=== PATIENT | female | born 1985 | race African-American/Black ===

== ENCOUNTER 2017-02-15 23:19 | Emergency (ER) | payer OTHER ==
[~2017-02-15] VITALS: Ht 170.2 cm; Wt 72.6 kg
[~2017-02-15 23:19] MED LIST: BUTA1CAP29 PO; GUAI473S3 PO; ONDA4TAB10 SL; PRED20TA PO; PROAIR HFA8.5 GM INH
[2017-02-15 23:21] VITALS: BP 142/74
[2017-02-16] MEDS ORDERED: PRED50TA PO (00:24)
[2017-02-16] MEDS ORDERED: DEXT30SU15 PO (00:24)
[2017-02-16] MEDS ORDERED: BENZ100C PO (00:24)
[2017-02-16] MEDS ORDERED: AZIT250T PO (00:24)
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
== END 2017-02-16 00:26 | disposition home or self-care (01) ==
LOC: ER 23:19 → MERGE 23:19 → ER 02-16 00:26
DX: J40 Bronchitis, not specified as acute or chronic (principal); J02.8 Acute pharyngitis due to other specified organisms; H92.03 Otalgia, bilateral; B97.89 Other viral agents as the cause of diseases classified elsewhere; Z77.22 Contact with and (suspected) exposure to environmental tobacco smoke (acute) (chronic); Z88.1 Allergy status to other antibiotic agents; Z88.8 Allergy status to other drugs, medicaments and biological substances
CPT/HCPCS: 99283

== ENCOUNTER 2017-10-03 21:35 | Emergency (ER) | payer OTHER ==
[~2017-10-03] VITALS: Ht 167.6 cm; Wt 72.6 kg
[~2017-10-03 21:35] MED LIST changes: +AZIT250T PO; +BENZ100C PO; +DEXT30SU19 PO; +PRED50TA PO
[2017-10-03 21:42] VITALS: BP 154/71
[2017-10-03] MEDS ORDERED: FLUT9.9S NS (21:51)
[2017-10-03] MEDS ORDERED: SULF1TAB24 PO (21:51)
--- NOTE | 2017-10-03 21:52 | PHYS DOC ---
Past Medical History Past Medical History: Other Additional Past Medical Histor: "heart murmur" Past Surgical History: No Surgical History Additional Past Surgical Histo: ectopic Alcohol Use: Occasionally Drug Use: None Adult General Chief Complaint Chief Complaint: Congestion HPI HPI Patient is a 32 year old female presents to the emergency department with upper respiratory symptoms for 2 weeks. She is using [id number] cough and cold medications without relief of symptoms. No fever. No facial pain. Review of Systems Review of Systems Constitutional: Denies fever or chills [] Eyes: Denies change in visual acuity, redness, or eye pain [] HENT: Nasal congestion Respiratory: Cough Cardiovascular: No additional information not addressed in HPI [] GI: Denies abdominal pain, nausea, vomiting, bloody stools or diarrhea [] : Denies dysuria or hematuria [] Musculoskeletal: Denies back pain or joint pain [] Integument: Denies rash or skin lesions [] Neurologic: Denies headache, focal weakness or sensory changes [] Endocrine: Denies polyuria or polydipsia [] All other systems were reviewed and found to be within normal limits, except as documented in this note. Allergies Allergies Allergies Coded Allergies Type Severity Reaction Last Updated Verified naproxen Allergy Severe Anaphylaxis 09/27/15 Yes procaine Allergy Severe Anaphylaxis 09/27/15 Yes Penicillins Allergy Intermediate rash 09/27/15 Yes Physical Exam Physical Exam Constitutional: Well developed, well nourished, no acute distress, non-toxic appearance. [] HENT: Normocephalic, atraumatic, bilateral external ears normal, oropharynx moist, no oral exudates, anterior turbinates swollen, purulent nasal discharge. Maxillary sinus tenderness.[] Eyes: PERRLA, EOMI, conjunctiva normal, no discharge. [] Neck: Normal range of motion, no tenderness, supple, no stridor. [] Cardiovascular:Heart rate regular rhythm, no murmur [] Lungs & Thorax: Bilateral breath sounds clear to auscultation [] Abdomen: Bowel sounds normal, soft, no tenderness, no masses, no pulsatile masses. [] Skin: Warm, dry, no erythema, no rash. [] Back: No tenderness, no CVA tenderness. [] Extremities: No tenderness, no cyanosis, no clubbing, ROM intact, no edema. [] Neurologic: Alert and oriented X 3, normal motor function, normal sensory function, no focal deficits noted. [] Psychologic: Affect normal, judgement normal, mood normal. [] Current Patient Data Vital Signs Vital Signs Date Time Temp Pulse Resp B/P (MAP) Pulse Ox O2 Delivery O2 Flow Rate FiO2 10/03/17 21:42 97.8 92 18 100 Room Air 97.8 EKG EKG [] Radiology/Procedures Radiology/Procedures [] Course & Med Decision Making Course & Med Decision Making Pertinent Labs and Imaging studies reviewed. (See chart for details) [] Dragon Disclaimer Dragon Disclaimer This electronic medical record was generated, in whole or in part, using a voice recognition dictation system. Departure Departure Impression: Primary Impression: Sinusitis Disposition: HOME, SELF-CARE Condition: STABLE Referrals: WILMAN SKY MD (PCP) Patient Instructions: Sinusitis Additional Instructions: Ilex-zir-[id number] cough and cold medications as labeled and as indicated for symptom management Scripts Fluticasone Propionate (Flonase Allergy Relief) 9.9 Ml [place].susp 2 SPRAYS NS DAILY, #1 BOTTLE Prov: FIFI BILLINGS APRN 10/03/17 Sulfamethoxazole/Trimethoprim (BACTRIM DS TABLET) 1 Each Tablet 1 TAB PO BID, #20 TAB Prov: FIFI BILLINGS APRN 10/03/17 Problem Qualifiers Primary Impression: Sinusitis Sinusitis location: maxillary Chronicity: acute Recurrence: non-recurrent Qualified Codes: J01.00 - Acute maxillary sinusitis, unspecified FIFI BILLINGS APRN Oct 03, 2017 21:52
== END 2017-10-03 22:13 | disposition home or self-care (01) ==
LOC: ER 21:35
DX: J01.00 Acute maxillary sinusitis, unspecified (principal); Z88.4 Allergy status to anesthetic agent; Z88.0 Allergy status to penicillin; Z88.6 Allergy status to analgesic agent
CPT/HCPCS: 99283

== ENCOUNTER 2017-12-20 18:49 | Emergency (ER) | payer OTHER ==
[2017-12-20] MEDS: BENZONATATE 100 MG CAPSULE. PO ×2 (20:00)
[2017-12-20] MEDS: DEXAMETHASONE 4 MG TABLET PO ×2 (20:06)
[2017-12-20] MEDS: IPRATRPIUM/ALBUTEROL 0.5/2.5MG 3 ML NEBU. NEB ×2 (20:11)
[2017-12-20 20:48] LABS: INFLUENZA A PATIENT NEGATIVE (NEGATIVE); INFLUENZA B PATIENT NEGATIVE (NEGATIVE); OBC FLU VALID
== END 2017-12-20 21:20 | disposition home or self-care (01) ==
LOC: ER 18:49
DX: J06.9 Acute upper respiratory infection, unspecified (principal); I10 Essential (primary) hypertension; Z88.0 Allergy status to penicillin; Z88.5 Allergy status to narcotic agent; Z88.8 Allergy status to other drugs, medicaments and biological substances
CPT/HCPCS: 71046; 87804; 87804-59; 94640; 99285-25; J7620; J8540

== ENCOUNTER 2018-02-06 16:55 | Emergency (ER) | payer OTHER | END 2018-02-06 18:16 | disposition home or self-care (01) | LOC: ER 18:16 | DX: S93.602A Unspecified sprain of left foot, initial encounter (principal); Z88.0 Allergy status to penicillin; Z88.5 Allergy status to narcotic agent; Z88.8 Allergy status to other drugs, medicaments and biological substances; W01.0XXA Fall on same level from slipping, tripping and stumbling without subsequent striking against object, initial encounter; Y93.89 Activity, other specified; Y99.8 Other external cause status; Y92.89 Other specified places as the place of occurrence of the external cause | CPT/HCPCS: 29515; 73630; 99284-25 ==

== ENCOUNTER 2018-05-23 13:32 | Emergency (ER) | payer OTHER ==
[2018-05-23] MEDS: ACETAMINOPHEN 500 MG TABLET PO (14:44)
== END 2018-05-23 14:49 | disposition home or self-care (01) ==
LOC: ER 13:32
DX: J06.9 Acute upper respiratory infection, unspecified (principal); H92.02 Otalgia, left ear; Z88.0 Allergy status to penicillin; Z88.5 Allergy status to narcotic agent; Z88.8 Allergy status to other drugs, medicaments and biological substances
CPT/HCPCS: 99283

== ENCOUNTER → 2019-10-08 | Outpatient (CLI) | payer OTHER ==
[2018-05-23 14:02] VITALS: BP 137/78
[~2019-10-08] MED LIST changes: +ACET500T68 PO; +ALBU2.5V8 INH; +FLUT9.9S NS; +METH4TAB2 PO; -PROAIR HFA8.5 GM INH; +PROM5SYR2 PO; +SULF1TAB24 PO
--- NOTE | 2019-10-08 14:49 | RAD ---
EXAM: Obstetrics sonogram HISTORY: Size and dates assessment. COMPARISON: None FINDINGS: Sonographic imaging of a gravid uterus was performed. There is a single intrauterine fetus in cephalic presentation with a normal heart rate of 137 bpm. There is normal body motion. There is a four-chamber heart. The stomach, kidneys, bladder, spine, brain, facial profile and extremities are unremarkable. There is a three-vessel umbilical cord with normal insertion. The cervix is closed and measures 4.4 cm in length. There is a posterior placenta without evidence of placenta previa. The amniotic fluid index is grossly normal. The biparietal diameter is 5.80 cm, corresponding with 23 weeks and 5 days. The head circumference is 20.90 cm, corresponding with 23 weeks and 0 days. The abdominal circumference is 17.99 cm, corresponding with 22 weeks and 6 days. The femoral length is 4.04 cm, corresponding with 23 weeks and 0 days. The estimated gestational age patient combined ultrasound measurements is 23 weeks and 1 day and the estimated due date is 02/03/2020. The estimated weight is 552 g, corresponding with the 41st percentile for a gestational age of 20 weeks and 6 days based on LMP. IMPRESSION: 1. Single intrauterine fetus with a normal heart rate and gestational age based on ultrasound measurements of 23 weeks and 1 day. 2. Unremarkable anatomy survey. Electronically signed by: Naila Goyal MD (10/08/2019 2:46 PM) [id number]
== END | disposition home or self-care (01) ==
LOC: US 12:29
PROVIDERS: ATTEND Obstetrics & Gynecology
DX: O26.842 Uterine size-date discrepancy, second trimester (principal); Z3A.23 23 weeks gestation of pregnancy
CPT/HCPCS: 76805

== ENCOUNTER 2019-10-15 16:04 | Observation (INO) | payer OTHER ==
[2018-05-23 14:02] VITALS: BP 137/78
[2019-10-15] MEDS ORDERED: IV RINGERS,LACTATED 1000ML 1,000 ML IV SCH (16:05)
[2019-10-15] MEDS ORDERED: TERBUTALINE 1 MG/ML VIAL. SQ PRN (16:15)
[2019-10-15] MEDS ORDERED: ONDANSETRON PF 4 MG/2 ML VIAL. IV PRN (16:15)
[2019-10-15] MEDS ORDERED: ACETAMINOPHEN 325 MG TABLET. PO PRN (16:15)
[2019-10-15 16:42] LABS: BILIRUBIN,URINE NEGATIVE (NEG); CLARITY,URINE CLEAR; COLOR,URINE AMBER; NITRITE,URINE NEGATIVE (NEG); PROTEIN,URINE NEGATIVE (NEG-TRACE)
[2019-10-15 16:46] LABS: BACTERIA,URINE FEW /HPF (0-FEW); SQUAMOUS EPITHELIAL CELL,UR MOD /LPF
[2019-10-15 16:47] LABS: RBC,URINE 0 /HPF (0-2)
[2019-10-15 16:54] LABS: BARBITURATES NEG (NEG); BENZODIAZEPINES NEG (NEG); CANNABINOIDS POS (NEG); COCAINE NEG (NEG); METHADONE NEG (NEG); OPIATES NEG (NEG); PHENCYCLIDINE NEG (NEG)
[2019-10-15 16:57] LABS: AMPHETAMINE/METHAMPHETAMINE NEG (NEG)
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
== END 2019-10-15 17:44 | disposition home or self-care (01) ==
LOC: 3 SO LND 16:04
PROVIDERS: ADMIT Obstetrics & Gynecology; ATTEND Obstetrics & Gynecology
DX: O99.89 Other specified diseases and conditions complicating pregnancy, childbirth and the puerperium (principal); M79.605 Pain in left leg; V49.40XA Driver injured in collision with unspecified motor vehicles in traffic accident, initial encounter; Y93.89 Activity, other specified; Y92.89 Other specified places as the place of occurrence of the external cause; Y99.8 Other external cause status; Z3A.23 23 weeks gestation of pregnancy
CPT/HCPCS: 76819; 80307; 81001; G0378; G0379; 59025; 87086

== ENCOUNTER 2019-11-20 21:39 | Observation (INO) | payer OTHER ==
[2018-05-23 14:02] VITALS: BP 137/78
[2019-11-20] MEDS ORDERED: ONDANSETRON PF 4 MG/2 ML VIAL. IV PRN (21:45)
[2019-11-20] MEDS ORDERED: ACETAMINOPHEN 325 MG TABLET. PO PRN (21:45)
[2019-11-20] MEDS ORDERED: IV RINGERS,LACTATED 1000ML 1,000 ML IV PRN (21:45)
[2019-11-20 22:03] LABS: BILIRUBIN,URINE NEGATIVE (NEG); CLARITY,URINE CLEAR; NITRITE,URINE POSITIVE (NEG); PH,URINE 6.5; PROTEIN,URINE 30 mg/dL (NEG-TRACE); UROBILINOGEN,URINE >=8.0 mg/dL (0.2 mg/dL)
[2019-11-20 22:07] LABS: COLOR,URINE YELLOW
[2019-11-20 22:09] LABS: AMPHETAMINE/METHAMPHETAMINE NEG (NEG); BARBITURATES NEG (NEG); BENZODIAZEPINES NEG (NEG); CANNABINOIDS POS (NEG); COCAINE NEG (NEG); METHADONE NEG (NEG); OPIATES NEG (NEG); PHENCYCLIDINE NEG (NEG)
[2019-11-20 22:10] LABS: BACTERIA,URINE MANY /HPF (0-FEW); RBC,URINE RARE /HPF (0-2); SQUAMOUS EPITHELIAL CELL,UR FEW /LPF; WBC,URINE >40 /HPF (0-4)
== END 2019-11-20 22:50 | disposition home or self-care (01) ==
LOC: 3 SO LND 21:39
PROVIDERS: ADMIT Obstetrics & Gynecology; ATTEND Obstetrics & Gynecology
DX: O21.2 Late vomiting of pregnancy (principal); O26.893 Other specified pregnancy related conditions, third trimester; R10.31 Right lower quadrant pain; R82.998 Other abnormal findings in urine; Z88.0 Allergy status to penicillin; Z3A.29 29 weeks gestation of pregnancy; Z79.899 Other long term (current) drug therapy
CPT/HCPCS: 80307; 81001; 87086; 87186; G0378; G0379

== ENCOUNTER 2019-11-26 14:03 | Observation (INO) | payer OTHER ==
[2018-05-23 14:02] VITALS: BP 137/78
[2019-11-26] MEDS ORDERED: DOCUSATE SODIUM 283 MG/5 ML ENEMA. PR ONE (14:30)
[2019-11-26 15:04] LABS: BILIRUBIN,URINE MODERATE (NEG); CLARITY,URINE CLEAR; NITRITE,URINE POSITIVE (NEG); PROTEIN,URINE 30 mg/dL (NEG-TRACE)
[2019-11-26 15:33] LABS: COLOR,URINE DK YELLOW; SQUAMOUS EPITHELIAL CELL,UR MOD /LPF
[2019-11-26 15:34] LABS: BACTERIA,URINE MODERATE /HPF (0-FEW); RBC,URINE 0 /HPF (0-2); WBC,URINE >40 /HPF (0-4)
[2019-11-26] MEDS ORDERED: CLINDAMYCIN 900MG PREMIX 50 ML IV ONE (17:15)
== END 2019-11-26 19:11 | disposition home or self-care (01) ==
LOC: 3 SO LND 14:03
PROVIDERS: ADMIT Obstetrics & Gynecology; ATTEND Obstetrics & Gynecology
DX: O26.893 Other specified pregnancy related conditions, third trimester (principal); K59.00 Constipation, unspecified; Z3A.30 30 weeks gestation of pregnancy
CPT/HCPCS: 81001; 87086; 96365; G0378; G0379; J3490; 87186

== ENCOUNTER 2020-01-07 14:49 | Observation (INO) | payer OTHER ==
[2018-05-23 14:02] VITALS: BP 137/78
[2020-01-07] MEDS ORDERED: IV RINGERS,LACTATED 1000ML 1,000 ML IV SCH (15:07)
[2020-01-07 16:21] LABS: BILIRUBIN,URINE NEGATIVE (NEG); CLARITY,URINE CLEAR; COLOR,URINE YELLOW; NITRITE,URINE NEGATIVE (NEG); PROTEIN,URINE NEGATIVE (NEG-TRACE)
[2020-01-07 16:27] LABS: RBC,URINE 0 /HPF (0-2)
[2020-01-07 16:28] LABS: BACTERIA,URINE MANY /HPF (0-FEW); SQUAMOUS EPITHELIAL CELL,UR FEW /LPF
== END 2020-01-07 16:52 | disposition home or self-care (01) ==
LOC: 3 SO LND 14:49
PROVIDERS: ADMIT Obstetrics & Gynecology; ATTEND Obstetrics & Gynecology
DX: O23.43 Unspecified infection of urinary tract in pregnancy, third trimester (principal); O62.9 Abnormality of forces of labor, unspecified; Z3A.35 35 weeks gestation of pregnancy
CPT/HCPCS: 81001; 87086; G0378; G0379; 87186

== ENCOUNTER 2020-01-10 12:24 | Emergency (ER) | payer OTHER ==
[~2020-01-10] VITALS: Ht 170.2 cm; Wt 92.1 kg
[2020-01-10 13:00] VITALS: BP 126/65
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
== END 2020-01-10 14:00 | disposition home or self-care (01) ==
LOC: ER 12:24
DX: O99.89 Other specified diseases and conditions complicating pregnancy, childbirth and the puerperium (principal); G89.11 Acute pain due to trauma; M79.605 Pain in left leg; Z86.2 Personal history of diseases of the blood and blood-forming organs and certain disorders involving the immune mechanism; Z3A.32 32 weeks gestation of pregnancy; Z88.0 Allergy status to penicillin; Z88.4 Allergy status to anesthetic agent; Z88.5 Allergy status to narcotic agent; V49.88XA Car occupant (driver) (passenger) injured in other specified transport accidents, initial encounter; Y93.89 Activity, other specified; Y92.488 Other paved roadways as the place of occurrence of the external cause; Y99.8 Other external cause status
CPT/HCPCS: 99281

== ENCOUNTER 2020-01-23 14:41 | Observation (INO) | payer OTHER ==
[2020-01-23] MEDS ORDERED: IV RINGERS,LACTATED 1000ML 1,000 ML IV PRN (16:15)
[2020-01-23 17:02] LABS: BILIRUBIN,URINE NEGATIVE (NEG); CLARITY,URINE CLEAR; COLOR,URINE YELLOW; NITRITE,URINE NEGATIVE (NEG); PROTEIN,URINE 30 mg/dL (NEG-TRACE)
[2020-01-23 17:10] LABS: AMPHETAMINE/METHAMPHETAMINE NEG (NEG); BARBITURATES NEG (NEG); BENZODIAZEPINES NEG (NEG); CANNABINOIDS NEG (NEG); COCAINE NEG (NEG); METHADONE NEG (NEG); OPIATES NEG (NEG); PHENCYCLIDINE NEG (NEG)
[2020-01-23 17:12] LABS: BACTERIA,URINE MANY /HPF (0-FEW); SQUAMOUS EPITHELIAL CELL,UR MANY /LPF
== END 2020-01-23 19:45 | disposition home or self-care (01) ==
LOC: 3 SO LND 14:41
PROVIDERS: ADMIT Obstetrics & Gynecology; ATTEND Obstetrics & Gynecology
DX: O62.9 Abnormality of forces of labor, unspecified (principal); Z3A.38 38 weeks gestation of pregnancy
CPT/HCPCS: 80307; 81001; 87086; G0378; G0379; J7120

== ENCOUNTER 2020-04-01 17:40 | Emergency (ER) | payer OTHER ==
[~2020-04-01] VITALS: Ht 170.2 cm; Wt 87.0 kg
[~2020-04-01 17:40] MED LIST changes: +OXYC1TAB15 PO
[2020-04-01 17:50] VITALS: BP 167/108
--- NOTE | 2020-04-01 19:44 | PHYS DOC ---
Past Medical History Past Medical History: Anemia Additional Past Medical Histor: "heart murmur" Past Surgical History: No Surgical History Additional Past Surgical Histo: ectopic Smoking Status: Never Smoker Alcohol Use: None Drug Use: None General Adult EDM: Chief Complaint: FOREIGNBODY EAR HPI: HPI: Patient is a 34 year old female who presents with left ear pain after a bug fle w into it a few days ago. She states she went to her PCP who sent her here to get it out. Upon examination I can not see anything that looks like a bug in the ear canal. The ear canal bilaterally are red and tender during the exam. Afebrile and denies fevers. She states she can feel the bug moving. Review of Systems: Review of Systems: HENT: Denies nasal congestion or sore throat. Ear pain. [] Heart Score: Risk Factors: Risk Factors: DM, Current or recent (<one month) smoker, HTN, HLP, family history of CAD, obesity. Risk Scores: Score 0 - 3: 2.5% MACE over next 6 weeks - Discharge Home Score 4 - 6: 20.3% MACE over next 6 weeks - Admit for Clinical Observation Score 7 - 10: 72.7% MACE over next 6 weeks - Early Invasive Strategies Allergies: Allergies: Allergies Coded Allergies Type Severity Reaction Last Updated Verified Penicillins Allergy Severe throat swelling, rash 11/26/19 Yes naproxen Allergy Severe Anaphylaxis 09/27/15 Yes procaine Allergy Severe Anaphylaxis 09/27/15 Yes Physical Exam: PE: Constitutional: Well developed, well nourished, no acute distress, non-toxic appearance. [] HENT: Normocephalic, atraumatic, bilateral external ears normal, oropharynx moist, no oral exudates, nose normal. Bilateral ear redness with fluid seen behind ear drum. [] Eyes: PERRLA, EOMI, conjunctiva normal, no discharge. [] Neck: Normal range of motion, no tenderness, supple, no stridor. [] Cardiovascular:Heart rate regular rhythm, no murmur [] Lungs & Thorax: Bilateral breath sounds clear to auscultation [] Abdomen: Bowel sounds normal, soft, no tenderness, no masses, no pulsatile masses. [] Skin: Warm, dry, no erythema, no rash. [] Back: No tenderness, no CVA tenderness. [] Extremities: No tenderness, no cyanosis, no clubbing, ROM intact, no edema. [] Neurologic: Alert and oriented X 3, normal motor function, normal sensory function, no focal deficits noted. [] Psychologic: Affect normal, judgement normal, mood normal. [] Current Patient Data: Vital Signs: Vital Signs Date Time Temp Pulse Resp B/P (MAP) Pulse Ox O2 Delivery O2 Flow Rate FiO2 04/01/20 17:50 97.9 81 18 167/108 (127) 100 Room Air 97.9 EKG: EKG: [] Radiology/Procedures: Radiology/Procedures: [] Course & Med Decision Making: Course & Med Decision Making Pertinent Labs and Imaging studies reviewed. (See chart for details) Bilateral ear canals are red and tender with exam. I do not see a bug in the ear. There does look to be some "pus" type drainage in ear canal. Dragon Disclaimer: Dragon Disclaimer: This electronic medical record was generated, in whole or in part, using a voice recognition dictation system. Departure Departure Impression: Primary Impression: Ear pain Qualified Codes: H92.03 - Otalgia, bilateral Disposition: HOME, SELF-CARE Condition: STABLE Referrals: JEROD ALSTON (PCP) Patient Instructions: Otitis Media, Adult, [id number] Additional Instructions: Take medication as prescribed and with food. Drink plenty of fluids. Do not st ick anything else in your ear. Follow-up with primary care if needed. Scripts Hydrocodone/Apap 5-325 (NORCO 5-325 TABLET) 1 Each Tablet 1 TAB PO PRN Q6HRS PRN for PAIN, #7 TAB 0 Refills Prov: KELL MOREL APRN 04/01/20 Azithromycin (AZITHROMYCIN TABLET) 250 Mg Tablet 1 PKG PO UD for 5 Days, #6 TAB 0 Refills 2 the first day followed by 1 for days 2-5 Prov: KELL MOREL APRN 04/01/20 KELL MOREL APRN April 01, 2020 19:44
[2020-04-01] MEDS ORDERED: AZIT250T6 PO (19:59)
[2020-04-01] MEDS ORDERED: HYDR-3164 PO (19:59)
== END 2020-04-01 20:08 | disposition home or self-care (01) ==
LOC: ER 17:40
DX: H92.03 Otalgia, bilateral (principal); Z98.890 Other specified postprocedural states; Z88.0 Allergy status to penicillin; Z88.8 Allergy status to other drugs, medicaments and biological substances; Z88.6 Allergy status to analgesic agent
CPT/HCPCS: 99283

== ENCOUNTER 2020-04-07 13:38 | Emergency (ER) | payer OTHER ==
[~2020-04-07] VITALS: Ht 170.2 cm; Wt 81.8 kg
[~2020-04-07 13:38] MED LIST changes: +AZIT250T6 PO; +HYDR-3164 PO
[2020-04-07 13:50] VITALS: BP 132/80
[2020-04-07] MEDS ORDERED: CLIN300C8 PO (14:24)
--- NOTE | 2020-04-07 14:24 | PHYS DOC ---
Past Medical History Past Medical History: Anemia Additional Past Medical Histor: "heart murmur" Past Surgical History: No Surgical History Additional Past Surgical Histo: ectopic Smoking Status: Never Smoker Alcohol Use: None Drug Use: None General Adult EDM: Chief Complaint: EARACHE/EAR PAIN HPI: HPI: Patient is a 34 year old female who presents to the ED today complaining of mo derate left ear pain that began on April 01, 2020. Patient reports being seen by the PCP in assumption she had a bug in her ear, she states they could not find the bug, she came to the ED the same day and was also evaluated, they could not find the bug and she was treated for otitis media with azithromycin. She states she still feels she has something in her ear and would like something for pain. Patient denies any fever. Denies any coughing or congestion. Review of Systems: Review of Systems: Constitutional: Denies fever or chills. [] Eyes: Denies change in visual acuity. [] HENT: Reports left ear pain. Denies nasal congestion or sore throat. [] Respiratory: Denies cough or shortness of breath. [] Cardiovascular: Denies chest pain or edema. [] GI: Denies abdominal pain, nausea, vomiting, bloody stools or diarrhea. [] : Denies dysuria. [] Musculoskeletal: Denies back pain or joint pain. [] Integument: Denies rash. [] Neurologic: Denies headache, focal weakness or sensory changes. [] Psychiatric: Denies depression or anxiety. [] Heart Score: Risk Factors: Risk Factors: DM, Current or recent (<one month) smoker, HTN, HLP, family history of CAD, obesity. Risk Scores: Score 0 - 3: 2.5% MACE over next 6 weeks - Discharge Home Score 4 - 6: 20.3% MACE over next 6 weeks - Admit for Clinical Observation Score 7 - 10: 72.7% MACE over next 6 weeks - Early Invasive Strategies Allergies: Allergies: Allergies Coded Allergies Type Severity Reaction Last Updated Verified Penicillins Allergy Severe throat swelling, rash 11/26/19 Yes naproxen Allergy Severe Anaphylaxis 09/27/15 Yes procaine Allergy Severe Anaphylaxis 09/27/15 Yes Physical Exam: PE: Constitutional: Well developed, well nourished, no acute distress, non-toxic appearance. [] HENT: Normocephalic, atraumatic, bilateral external ears normal, oropharynx moist, no oral exudates, nose normal. [] Bilateral ears were evaluated, no foreign object/bugs were noted. There is slight erythema to the left TM but not indicative for infection. Eyes: PERRLA, EOMI, conjunctiva normal, no discharge. [] Neck: Normal range of motion, no tenderness, supple, no stridor. [] Cardiovascular:Heart rate regular rhythm, no murmur [] Lungs & Thorax: Bilateral breath sounds clear to auscultation [] Abdomen: Bowel sounds normal, soft, no tenderness, no masses, no pulsatile masses. [] Skin: Warm, dry, no erythema, no rash. [] Back: No tenderness, no CVA tenderness. [] Extremities: No tenderness, no cyanosis, no clubbing, ROM intact, no edema. [] Neurologic: Alert and oriented X 3, normal motor function, normal sensory function, no focal deficits noted. [] Psychologic: Affect normal, judgement normal, mood normal. [] Current Patient Data: Vital Signs: Vital Signs Date Time Temp Pulse Resp B/P (MAP) Pulse Ox O2 Delivery O2 Flow Rate FiO2 04/07/20 13:50 98.0 86 12 132/80 (97) 98 Room Air 98.0 EKG: EKG: [] Radiology/Procedures: Radiology/Procedures: [] Course & Med Decision Making: Course & Med Decision Making Pertinent Labs and Imaging studies reviewed. (See chart for details) This is a 34-year-old female patient presenting to the ED today complaining of left ear pain that began on April 01, 2020. See HPI. Patient was seen on that day by the PCP, she also came to the ED and was evaluated. Was sent home with azithromycin which she states is not helping. She is requesting something for pain as well as requesting another antibiotic. Her ear canals do not have any signs of infection, the TM on the left side is slightly injected but not concerning otitis media diagnosis. Patient continues to insist on antibiotics and pain medicine. She was given prescription for clindamycin and I told her to consider seeing an ENT considering this is her third visit to a provider for the same complaint. I did give her Dr. Marisol Rosas's contact information. On [facility] tracs this patient was given [address] Escamilla on 04/01/2020 for 30 day supply, she came to the Ed the same day and was given 7 tablets of [place]. She was advised to take OTC pain relievers. Eliza Disclaimer: Eliza Disclaimer: This electronic medical record was generated, in whole or in part, using a voice recognition dictation system. Departure Departure Impression: Primary Impression: Otalgia, left ear Disposition: HOME, SELF-CARE Condition: STABLE Referrals: JEROD ALSTON (PCP) MARISOL ROSAS MD follow up in the course of this week or next week Patient Instructions: Otalgia-Brief Additional Instructions: Please see the provided ENT specialist as soon as you can. Scripts Clindamycin Hcl (CLINDAMYCIN HCL) 300 Mg Capsule 1 CAP PO TID, #21 CAP Prov: INGA FATIMA APRN 04/07/20 INGA FATIMA APRN Apr 07, 2020 14:24
== END 2020-04-07 14:26 | disposition home or self-care (01) ==
LOC: ER 13:38
DX: H92.02 Otalgia, left ear (principal); Z88.0 Allergy status to penicillin; Z88.4 Allergy status to anesthetic agent; Z88.5 Allergy status to narcotic agent
CPT/HCPCS: 99283

== ENCOUNTER 2020-07-26 10:07 | Emergency (ER) | payer OTHER ==
[~2020-07-26] VITALS: Ht 170.2 cm; Wt 91.9 kg
[~2020-07-26 10:07] MED LIST changes: +CLIN300C8 PO
[2020-07-26 10:35] VITALS: BP 147/83
[2020-07-26] MEDS ORDERED: MAGNESIUM CITRATE 296 ML SOLUTION. PO ONE (11:15)
--- NOTE | 2020-07-26 11:36 | PHYS DOC ---
Past Medical History Past Medical History: Anemia Additional Past Medical Histor: "heart murmur" Past Surgical History: No Surgical History Additional Past Surgical Histo: ectopic Smoking Status: Never Smoker Alcohol Use: Occasionally Drug Use: None General Adult EDM: Chief Complaint: CONSTIPATION HPI: HPI: Patient is a 35 year old female who presents to the ED today complaining of constipation for 2 days. Patient denies any abdominal pain, nausea vomiting. She reports this is a chronic issue. She states she does not know why she keeps getting constipated but she does not drink water because she does not like the test. She used "some powder stuff" and had a bowel movement a couple minutes ago. She would like to be discharged home. Review of Systems: Review of Systems: Constitutional: Denies fever or chills. [] Eyes: Denies change in visual acuity. [] HENT: Denies nasal congestion or sore throat. [] Respiratory: Denies cough or shortness of breath. [] Cardiovascular: Denies chest pain or edema. [] GI: Reports constipation. Denies abdominal pain, nausea, vomiting, bloody stools or diarrhea. [] : Denies dysuria. [] Musculoskeletal: Denies back pain or joint pain. [] Integument: Denies rash. [] Neurologic: Denies headache, focal weakness or sensory changes. [] Psychiatric: Denies depression or anxiety. [] Heart Score: Risk Factors: Risk Factors: DM, Current or recent (<one month) smoker, HTN, HLP, family history of CAD, obesity. Risk Scores: Score 0 - 3: 2.5% MACE over next 6 weeks - Discharge Home Score 4 - 6: 20.3% MACE over next 6 weeks - Admit for Clinical Observation Score 7 - 10: 72.7% MACE over next 6 weeks - Early Invasive Strategies Current Medications: Current Medications Medications (Trade) Dose Ordered Sig/Kath Start Time Stop Time Status Last Admin Dose Admin Magnesium Citrate (Citroma) 296 ml 1X ONCE 07/26/20 11:15 07/26/20 11:16 DC Allergies: Allergies: Allergies Coded Allergies Type Severity Reaction Last Updated Verified Penicillins Allergy Severe throat swelling, rash 11/26/19 Yes naproxen Allergy Severe Anaphylaxis 09/27/15 Yes procaine Allergy Severe Anaphylaxis 09/27/15 Yes Physical Exam: PE: Constitutional: Well developed, well nourished, no acute distress, non-toxic appearance. [] HENT: Normocephalic, atraumatic, bilateral external ears normal, oropharynx moist, no oral exudates, nose normal. [] Eyes: PERRLA, EOMI, conjunctiva normal, no discharge. [] Neck: Normal range of motion, no tenderness, supple, no stridor. [] Cardiovascular:Heart rate regular rhythm, no murmur [] Lungs & Thorax: Bilateral breath sounds clear to auscultation [] Abdomen: Bowel sounds normal, soft, no tenderness, no masses, no pulsatile masses. [] Skin: Warm, dry, no erythema, no rash. [] Back: No tenderness, no CVA tenderness. [] Extremities: No tenderness, no cyanosis, no clubbing, ROM intact, no edema. [] Neurologic: Alert and oriented X 3, normal motor function, normal sensory function, no focal deficits noted. [] Psychologic: Affect normal, judgement normal, mood normal. [] Current Patient Data: Vital Signs: Vital Signs Date Time Temp Pulse Resp B/P (MAP) Pulse Ox O2 Delivery O2 Flow Rate FiO2 07/26/20 10:35 98.5 82 147/83 (104) 99 98.5 07/26/20 10:28 20 07/26/20 10:22 Room Air EKG: EKG: [] Radiology/Procedures: Radiology/Procedures: [] Course & Med Decision Making: Course & Med Decision Making Pertinent Labs and Imaging studies reviewed. (See chart for details) This is a 35-year-old female patient presenting to the ED today with what sounds like chronic constipation. She had a bowel movement a couple minutes ago. We gave mag citrate to drink in the ED and discussed methods of managing and preventing constipation. She has a PCP, she will follow-up in 1 to 2 weeks. Eliza Disclaimer: Eliza Disclaimer: This electronic medical record was generated, in whole or in part, using a voice recognition dictation system. Departure Departure Impression: Primary Impression: Constipation Qualified Codes: K59.00 - Constipation, unspecified Disposition: HOME, SELF-CARE Condition: STABLE Referrals: JEROD ALSTON (PCP) follow up in one week Patient Instructions: Constipation, Adult Additional Instructions: You were evaluated in the emergency room for constipation. Increase your dietary fiber intake, increase your water intake to 64 ounces a day. Exercise. Take MiraLAX every day as well as a stool softener to prevent constipation. Follow-up with your own doctor in 1 to 2 weeks Justicifation of Admission Dx: Justifications for Admission: Justification of Admission Dx: N/A INGA FATIMA APRN Jul 26, 2020 11:36
== END 2020-07-26 11:57 | disposition home or self-care (01) ==
LOC: ER 10:07
DX: K59.00 Constipation, unspecified (principal); Z88.0 Allergy status to penicillin; Z88.4 Allergy status to anesthetic agent; Z88.5 Allergy status to narcotic agent
CPT/HCPCS: 99284

== ENCOUNTER 2021-08-14 12:35 | Emergency (ER) | payer OTHER ==
[~2021-08-14] VITALS: Ht 170.2 cm; Wt 100.0 kg
[~2021-08-14 12:35] MED LIST changes: +CLIN-94 PO; -CLIN300C8 PO
[2021-08-14 13:53] VITALS: BP 154/84
--- NOTE | 2021-08-14 14:03 | PHYS DOC ---
Past Medical History Past Medical History: Anemia Additional Past Medical Histor: "heart murmur" Past Surgical History: No Surgical History Additional Past Surgical Histo: ectopic Smoking Status: Never Smoker Alcohol Use: Occasionally Drug Use: None General Adult EDM: Chief Complaint: COUGH HPI: HPI: Patient is a 36 year old female who presents with cough, congestion, sore throat, and muscle aches. She lives with her sister and share a bathroom, who tested positive for Covid and influenza today. Several sick contacts at home. Denies shortness of breath or chest pain. Does state that she was vaccinated with a 2 part vaccination series. Second shot was approximately 2 months ago. Review of Systems: Review of Systems: Constitutional: Reports occasional chills denies fever or chills. [] Eyes: Denies change in visual acuity. [] HENT: Reports congestion and sore throat] Respiratory: Denies cough or shortness of breath. [] Cardiovascular: Denies chest pain or edema. [] GI: Denies abdominal pain, nausea, vomiting, bloody stools or diarrhea. [] : Denies dysuria. [] Musculoskeletal: Denies back pain or joint pain. [] Integument: Denies rash. [] Neurologic: Denies headache, focal weakness or sensory changes. [] Endocrine: Denies polyuria or polydipsia. [] Lymphatic: Denies swollen glands. [] Psychiatric: Denies depression or anxiety. [] Heart Score: C/O Chest Pain: No Risk Factors: Risk Factors: DM, Current or recent (<one month) smoker, HTN, HLP, family history of CAD, obesity. Risk Scores: Score 0 - 3: 2.5% MACE over next 6 weeks - Discharge Home Score 4 - 6: 20.3% MACE over next 6 weeks - Admit for Clinical Observation Score 7 - 10: 72.7% MACE over next 6 weeks - Early Invasive Strategies Allergies: Allergies: Allergies Coded Allergies Type Severity Reaction Last Updated Verified Penicillins Allergy Severe throat swelling, rash 11/26/19 Yes naproxen Allergy Severe Anaphylaxis 09/27/15 Yes procaine Allergy Severe Anaphylaxis 09/27/15 Yes Physical Exam: PE: Constitutional: Well developed, well nourished, no acute distress, non-toxic appearance. [] HENT: Normocephalic, atraumatic, bilateral external ears normal, oropharynx moist, no oral exudates, nose normal. [] Eyes:conjunctiva normal, no discharge. [] Neck: Normal range of motion, no tenderness, supple, no stridor. [] Cardiovascular:Heart rate regular rhythm, systolic murmur present (patient states is chronic) [] Lungs & Thorax: Clear breath sounds bilaterally. Normal work of breathing. Speaking in paragraphs at a time. [] Abdomen: Bowel sounds normal, soft, no tenderness, no masses, no pulsatile masses. [] Skin: Warm, dry, no erythema, no rash. [] Back: No tenderness, no CVA tenderness. [] Extremities: No tenderness, no cyanosis, no clubbing, ROM intact, no edema. [] Neurologic: Alert and oriented X 3, normal motor function, normal sensory function, no focal deficits noted. [] Psychologic: Affect normal, judgement normal, mood normal. [] EKG: EKG: [] Radiology/Procedures: Radiology/Procedures: [] Course & Med Decision Making: Course & Med Decision Making Pertinent Labs and Imaging studies reviewed. (See chart for details) Patient a 36-year-old female who presents with nasal congestion, sore throat, muscle aches, occasional chills in the setting of Covid and influenza exposure. On arrival is afebrile, hemodynamically stable. Satting 99-100% on room air. Normal respiratory exam and effort. Do not feel she would benefit from chest x-ray. Do not feel she would benefit from blood work. We will test for Covid and influenza. Advised on isolation recommendations. Return precautions for worsening symptoms. Eliza Disclaimer: Eliza Disclaimer: This electronic medical record was generated, in whole or in part, using a voice recognition dictation system. Departure Departure Impression: Primary Impression: Person under investigation for COVID-19 Disposition: HOME / SELF CARE / HOMELESS Condition: STABLE Referrals: JEROD ALSTON (PCP) Additional Instructions: You are being tested for Covid and influenza. Please self isolate until you know the results of your test. If it is positive you will need to isolate for 10 days following your test, and have at least 3 days of improving symptoms without fever. Please try to limit contact between possible contacts. Please wash your hands and use good hygiene habits with sanitizing wipes on surfaces. Limit direct exposure with house hold contacts. OLU HUTCHINSON MD Aug 14, 2021 14:03
[2021-08-14 14:29] LABS: INFLUENZA A PATIENT NEGATIVE (NEGATIVE); INFLUENZA B PATIENT NEGATIVE (NEGATIVE)
== END 2021-08-14 14:42 | disposition home or self-care (01) ==
LOC: ER 12:35
DX: U07.1 COVID-19 (principal); Z86.2 Personal history of diseases of the blood and blood-forming organs and certain disorders involving the immune mechanism; Z88.0 Allergy status to penicillin; Z88.4 Allergy status to anesthetic agent; Z88.8 Allergy status to other drugs, medicaments and biological substances
CPT/HCPCS: 81025; 87426; 87804; 99283